=== PATIENT | male | born 1965 | race Caucasian/White ===

== ENCOUNTER 2016-05-11 04:38 | Emergency (ER) | payer OTHER ==
[~2016-05-11] VITALS: Ht 172.7 cm; Wt 77.1 kg
--- NOTE | 2016-05-11 04:48 | ED GI/GU/ABDOMINAL COMPLAINT ---
History of Present Illness General Chief Complaint: Abdominal Pain/Flank Pain Stated Complaint: UPPER LEFT FLANK PAIN Source: patient, family Exam Limitations: no limitations Vital Signs & Intake/Output Vital Signs & Intake/Output Vital Signs Date Time Temp Pulse Resp B/P Pulse O2 O2 Flow FiO2 Ox Delivery Rate 05/11 0756 96.4 46 16 98/47 97 Room Air 05/11 0440 96.0 54 20 114/59 96 Room Air Triage Note: PT BIBA FROM HOME C/O 12/09 L SIDED FLANK PAIN THAT RADIATES TO BACK. PT RECIEVED 4 BABY ASPIRIN AND 50MG FENTANYL BY MEDIC, PAIN WENT TO 5/10. PER EMS PT HAS BEEN HAVING SOME STRESS REVOLVING FAMILY RECENTLY. UPON ARRIVAL PT STATES "REMEMBER ME, IM HERE ALL THE TIME". Triage Nurses Notes Reviewed? yes Onset: Gradual Duration: day(s):, waxing and waning Timing: recent history Quality/Severity: sharpness Location: left lower rib cage pain Radiation: no radiation Activities at Onset: father in law with [place] yesterday. Mother in law found yesterday Prior Abdominal Problems: none Modifying Factors: Worsens With: movement, palpation, other (worse w/deep breath). Associated Symptoms: left sided rib cage pain HPI: 2-year-old gentleman history of a hiatal hernia and hypothyroidism presents with left lower rib cage pain. He states the pain began approximately 5 days ago. He notes that it is sharp, worse with deep inspiration, nonradiating. He states he has no cough phlegm wheezing fever nausea vomiting or diarrhea. He is otherwise well and has no other concerns. (KISHOR ZELAYA,KRISHAN Hou) Allergies Coded Allergies: No Known Allergies (05/11/16) (KYRIE ZELAYA,ELAINE) Past History Travel History Traveled to [place] past 21 day No Medical History Any Pertinent Medical History? see below for history Gastrointestinal: diverticulitis, lactose intolerance Endocrine: hypothyroidism Surgical History Surgical History: none Psychosocial History What is your primary language Croatian Tobacco Use: Current Not Daily Family History Hx Contributory? No (KISHOR ZELAYA,KRISHAN Hou) Review of Systems Review of Systems Constitutional: Reports: no symptoms. EENTM: Reports: no symptoms. Respiratory: Reports: no symptoms. Cardiovascular: Reports: no symptoms. GI: Reports: no symptoms. Genitourinary: Reports: no symptoms. Musculoskeletal: Reports: no symptoms. Skin: Reports: no symptoms. Neurological/Psychological: Reports: no symptoms. Hematologic/Endocrine: Reports: no symptoms. Immunologic/Allergic: Reports: no symptoms. All Other Systems: Reviewed and Negative (KISHOR ZELAYA,KRISHAN Hou) Physical Exam Physical Exam General Appearance: well developed/nourished, mild distress Head: atraumatic, normal appearance Eyes: Bilateral: normal appearance. Ears, Nose, Throat, Mouth: hearing grossly normal, moist mucous membrane Neck: normal inspection, supple, full range of motion Respiratory: normal breath sounds, no respiratory distress, left-sided lower rib cage tenderness to palpation Cardiovascular: regular rate/rhythm Gastrointestinal: normal bowel sounds, soft, non-tender, no organomegaly Back: normal inspection, normal range of motion Extremities: normal range of motion Neurologic/Psych: no motor/sensory deficits, awake, alert, oriented x 3 Skin: intact, normal color, warm/dry Core Measures ACS in differential dx? No Severe Sepsis Present: No Septic Shock Present: No (KISHOR ZELAYA,KRISHAN Hou) Progress Differential Diagnosis: [place] versus pleurisy versus rib cage pain versus other Plan of Care: Orders Procedure Date/time Status TROPONIN LEVEL 05/11 0745 Complete D-DIMER 05/11 0745 Complete EKG 05/11 0745 Active Add-on Test (ER Only) 05/11 0519 Active TROPONIN LEVEL 05/11 0448 Complete LIPASE 05/11 0448 Complete HEPATIC FUNCTION PANEL 05/11 0448 Complete CBC WITHOUT DIFFERENTIAL 05/118 Complete BASIC METABOLIC PANEL 05/11 0448 Complete AMYLASE 05/11 0448 Complete EKG 05/11 0448 Active Laboratory Tests 05/11/16 0748: Troponin I < 0.01, D-Dimer < 200 05/11/16 0457: Anion Gap 7, Estimated GFR > 60, BUN/Creatinine Ratio 15.0, Glucose 97, Calcium 9.3, Total Bilirubin 1.0, Direct Bilirubin 0.4, AST 20, ALT 27, Alkaline Phosphatase 52, Troponin I < 0.01, Total Protein 6.4, Albumin 3.9, Amylase 30, Lipase 59, CBC w Diff NO MAN DIFF REQ, RBC 4.73, MCV 92.7, MCH 31.2 H, RDW 12.9 , MPV 8.6, Gran % 63.2, Lymphocytes % 27.2, Monocytes % 8.7, Eosinophils % 0.6, Basophils % 0.3, Absolute Granulocytes 3.6, Absolute Lymphocytes 1.5, Absolute Monocytes 0.5, Absolute Eosinophils 0, Absolute Basophils 0, PUBS MCHC 33.6 05/11/2016 7:15:33 AM Patient signed out to me by Dr. Frye pending repeat troponin at 7:45 am. : 2 is negative. D-dimer is negative. Patient sees Dr. Bermudez in [place] and had a stress test approximately 5-6 years ago which he states was negative. Patient was instructed to follow-up with him this week in the office and to return if worse to the emergency department. Lab results discussed with the patient. (ELAINE MITTAL MD) Diagnostic Imaging: Viewed by Me: Radiology Read. Discussed w/RAD: Radiology Read. Initial ED EKG: normal axis, normal intervals, normal p-waves, normal QRS complex, normal sinus rhythm Hand-Off Endorsed To: ELAINE MITTAL MD Endorsed Time: 0700 Pending: EKG, labs (KISHOR ZELAYA,KRISHAN Hou) Departure Departure Condition: Stable Clinical Impression Primary Impression: Chest pain Departure Forms: Customer Survey General Discharge Information (KRISHAN FRYE MD) Departure Time of Disposition: 0837 Disposition: HOME OR SELF CARE Referrals: DEVORA ZELAYA,SHAHLA TREVINO MD,MARTINEZ Higgins (PCP/Family) Additional Instructions: FOLLOW UP WITH YOUR DOCTOR IN THE OFFICE AND WITH THE [employer] [facility] LISTED. YOUR BLOOD WORK IN THE ER WAS NEGATIVE. RETURN FOR ANY CHANGING OR WORSENING SYMPTOMS. (ELAINE MITTAL MD)
[2016-05-11 05:26] LABS: ABSOLUTE BASOPHIL COUNT 0 /CUMM (0.0-0.2); ABSOLUTE EOSINOPHIL COUNT 0 /CUMM (0.0-0.7); ABSOLUTE GRANULOCYTE CT 3.6 /CUMM (1.4-6.5); ABSOLUTE LYMPH COUNT 1.5 /CUMM (1.2-3.4); ABSOLUTE MONOCYTE COUNT 0.5 /CUMM (0.10-0.60); BASOPHIL % 0.3 % (0.0-2.0); EOSINOPHIL % 0.6 % (0-5); GRANULOCYTE % 63.2 % (42.2-75.2); HEMATOCRIT 43.8 % (42-52); MEAN CORPUSCULAR HGB 31.2 PG (27.0-31.0); MEAN CORPUSCULAR HGB CONC 33.6 G/DL (33.0-37.0); MEAN CORPUSCULAR VOLUME 92.7 FL (80.0-94.0); MEAN PLATELET VOLUME 8.6 FL (7.4-10.4); PLATELET COUNT 204 /CUMM (130-400); RBC DISTRIBUTION WIDTH 12.9 % (11.5-14.5); RED BLOOD CELL CT 4.73 /CUMM (4.70-6.10); WHITE BLOOD CELL COUNT 5.7 /CUMM (4.8-10.8)
--- NOTE | 2016-05-11 07:44 | RADIOLOGY REPORT ---
EXAMINATION: XR PORTABLE CHEST CLINICAL INFORMATION: Left upper rib cage pain COMPARISON: Chest radiograph 05/18/2015. TECHNIQUE: Portable AP 90 degrees upright view of the chest was obtained. FINDINGS: Cardiac and mediastinal silhouettes are normal in appearance. The lung volumes are decreased. No focal consolidation or atelectasis. No displaced rib fractures are seen. IMPRESSION: Low lung volumes. The lungs are clear. Follow-up PA and lateral chest radiograph could be obtained if there are continuing symptoms.
[2016-05-11 07:56] VITALS: BP 98/47
== END 2016-05-11 08:56 ==
LOC: ERH 04:38
PROVIDERS: Pediatrics
DX: R07.9 Chest pain, unspecified (principal)
CPT/HCPCS: 93005; 93010; 96374; 96375; J0131; J1885